=== PATIENT | male | born 1990 | race African-American/Black ===

== ENCOUNTER 2017-02-06 22:18 | Emergency (ER) | payer SELFPAY ==
[~2017-02-06] VITALS: Ht 170.2 cm; Wt 61.4 kg
[2017-02-06] MEDS ORDERED: IBUP-1506 PO (22:29)
[2017-02-06] MEDS ORDERED: OXYC10 PO (22:29)
[2017-02-07] MEDS ORDERED: PROMETHAZINE HCL/CODEINE 6.25-10MG/5ML SYRUP UDCUP PO ONE (00:30)
[2017-02-07 00:39] VITALS: BP 114/66
== END 2017-02-07 00:41 | disposition home or self-care (01) ==
LOC: EMS 22:23
DX: J06.9 Acute upper respiratory infection, unspecified (principal)
CPT/HCPCS: 99283

== ENCOUNTER 2017-02-07 08:54 | Emergency (ER) | payer SELFPAY ==
[~2017-02-07] VITALS: Ht 170.2 cm; Wt 63.6 kg
[~2017-02-07 08:54] MED LIST: IBUP-1506 PO; OXYC10 PO
[2017-02-07 09:01] VITALS: BP 120/78
== END 2017-02-07 09:52 | disposition home or self-care (01) ==
LOC: EMS 08:57
DX: Z76.0 Encounter for issue of repeat prescription (principal)
CPT/HCPCS: 99281